=== PATIENT | female | born 1950 | race Caucasian/White ===

== ENCOUNTER 2020-06-01 13:01 | Inpatient (IN) | payer MEDICARE ==
[~2020-06-01] VITALS: Ht 157.5 cm; Wt 65.7 kg
[~2020-06-01 13:01] MED LIST: AMOXICILLIN875 MG PO; ASPIR 8181 MG PO; BENADRYL25 MG; CALCIUM 600 +1 EAC1 PO; CATAPRES0.1 MG PO; CO Q-10100 MG; HYDROCHLOROTH12.5 M2; HYDROCHLOROTH12.5 M2 PO; LIPITOR 20 MG T20 M1; LIPITOR 20 MG T20 M1 PO; LISINOPRIL20 MG PO; MOTION RELIEF25 MG PO; NORVASC2.5 MG PO; TENORMIN25 MG PO; VITAMIN D2000 UNIT PO; ZOFRAN ODT4 MG PO; ZOLOFT25 MG PO
[2020-06-01 13:02] VITALS: BP 160/69
[2020-06-01] MEDS ORDERED: CARDIZEM SR 60M60 MG PO (13:06)
[2020-06-01] MEDS ORDERED: ZESTRIL40 MG PO (13:06)
[2020-06-01] MEDS ORDERED: ZOCOR 10 MG TAB10 MG PO (13:07)
[2020-06-01 13:25] LABS: ABSOLUTE LYMPHOCYTES 1.2 thou/uL (0.8-5.3); ABSOLUTE MONOCYTES 0.3 thou/uL (0.0-1.2); ABSOLUTE NEUTROPHILS 4.2 thou/uL (1.6-8.1); BASOPHILS 0.5 %; EOSINOPHILS 0.8 %; HEMOGLOBIN 11.7 gm/dL (12.0-15.0); LYMPHOCYTES 20.5 %; MCH 29.6 pg (26.0-34.0); MCHC 34.3 g/dL (28.0-37.0); MCV 86.4 fL (80.0-100.0); MONOCYTES 5.5 %; MPV 7.4 fl. (7.2-11.1); NUCLEATED RBCS 0 /100WBC; PLATELET COUNT* 251 thou/uL (150-400); POLYS 72.7 %; RBC 3.94 mil/uL (4.20-5.00); RDW-CV 13.1 % (10.5-14.5); WBC 5.7 thou/uL (4.0-11.0)
[2020-06-01 13:34] LABS: APTT 25.8 Seconds (25.0-31.3); CALCIUM 8.6 mg/dL (8.5-10.1); CREATININE 0.9 mg/dL (0.6-1.3); POTASSIUM 3.9 mmol/L (3.5-5.1); PROTIME 10.5 Seconds (9.20-11.50)
[2020-06-01 13:50] LABS: ALBUMIN 3.7 g/dL (3.4-5.0); TOTAL BILIRUBIN 0.4 mg/dL (<0.1-1.0); TOTAL PROTEIN 7.4 g/dL (6.4-8.2)
[2020-06-01 16:48] VITALS: BP 135/63
[2020-06-01 17:08] VITALS: BP 144/61
--- NOTE | 2020-06-01 17:14 | EKG ---
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[employer]: LISA : 1950 Requested By: Ran Yusuf Order Number: [id number] MD: Kobi Moreno Measurements Intervals [place] Rate: 82 P: SC: QRS: 1 QRSD: 95 T: 70 QT: 377 QTc: 441 Interpretive Statements Normal sinus rhythm Nonspecific T abnormalities, lateral leads Compared to ECG 04/30/2017 10:23:04 Sinus rhythm no longer present T-wave abnormality still present Electronically Signed On 06-01-2020 17:14:06 CDT by Kobi Moreno [email or web address] <ELECTRONICALLY SIGNED> By: Dana Moreno MD, [facility] 06/01/20 1714 1308 1308 Dana Moreno MD, [facility] /EPI
[2020-06-01 17:17] LABS: CHOLESTEROL 251 mg/dL (<200); HDL CHOLESTEROL 36 mg/dL (>40); LDL CHOLESTEROL 192 mg/dL (<100); TRIGLYCERIDE 116 mg/dL (<150); VLDL 23 mg/dL (<40)
[2020-06-01 17:18] LABS: SERUM ASSESSMENT Clear
[2020-06-01 20:00] VITALS: BP 155/67
[2020-06-02] VITALS: BP 121/47
[2020-06-02 04:00] VITALS: BP 143/76
[2020-06-02 08:00] VITALS: BP 167/72
[2020-06-02 12:00] VITALS: BP 166/79
--- NOTE | 2020-06-02 15:27 | 2DMMODE ---
[place] [address] 2 D/M-MODE ECHOCARDIOGRAM Name: WILLIE GONCALVES Dre Room: [address] IN M.R.#: [id number] Admission: 06/01/20 Attend Phys: Clarke Reveles, Discharge: Date of : 46 Date of Service: 06/02/20 1526 Report #: [id number] THIS REPORT FOR: cc: Virginia Munson MD, Lin W. MD Holkins, John M. MD [facility] ~ APPROVED REPORT Study performed: 06/02/2020 13:07:19 EXAM: Comprehensive 2D, Doppler, and color-flow Echocardiogram Patient Location: Bedside BSA: 1.59 HR: 79 bpm BP: 143/76 mmHg Other Information Study Quality: Good Indications CVA/TIA Echo Enhancing Agent Indication: Rule out Shunt Agent(s) / Amount(s) Used: Agitated Saline cc 2D Dimensions IVSd: 10.12 (7-11mm) LVOT Diam: 22.36 (18-24mm) LVDd: 47.82 mm PWd: 10.21 (7-11mm) Ascending Ao: 28.39 (22-36mm) LVDs: 31.03 (25-40mm) Aortic Root: 27.22 mm Volumes Left Atrial Volume (Systole) LA ESV Index: 19.20 mL/m2 Aortic Valve AoV Peak Srikanth.: 1.77 m/s AO Peak Gr.: 12.53 mmHg LVOT Max P.17 mmHg AO Mean Gr.: 7.59 mmHg LVOT Mean P.18 mmHg LVOT Max V: 1.02 m/s AO V2 VTI: 36.81 cm LVOT Mean V: 0.68 m/[place] [address] 2 D/M-MODE ECHOCARDIOGRAM Name: WILLIE GONCALVES Room: [address] IN ..#: [id number] Admission: 06/01/20 Attend Phys: Clarke Reveles, Discharge: Date of : 46 Date of Service: 06/02/20 1526 Report #: [id number] INDIGO (VTI): 2.42 cm2 LVOT V1 VTI: 22.68 cm Mitral Valve E/A Ratio: 0.78 MV Decel. Time: 234.13 ms MV E Max Srikanth.: 0.78 m/s MV PHT: 67.90 ms MVA (PHT): 3.24 cm2 TDI E/Lateral E': 13.00 E/Medial E': 7.80 Medial E' Srikanht.: 0.10 m/s Lateral E' Srikanth.: 0.06 m/s Pulmonary Valve PV Peak Srikanth.: 1.22 m/s PV Peak Gr.: 5.92 mmHg Tricuspid Valve RAP Estimate: 5.00 mmHg TR Peak Gr.: 21.80 mmHg RVSP: 26.80 mmHg PA Pressure: 26.80 mmHg Left Ventricle The left ventricle is normal size. There is normal LV segmental wall motion. Mild concentric left ventricular hypertrophy. Left ventricular systolic function is normal. The left ventricular ejection fraction is within the normal range. LVEF is 60-65%. Grade I - abnormal relaxation pattern. Right Ventricle The right ventricle is normal size. The right ventricular systolic function is normal. Atria The left atrium size is normal. Injection of bubbles documented no interatrial shunt. The right atrium size is normal. Aortic Valve Mild aortic valve sclerosis. No aortic regurgitation is present. There is no aortic valvular stenosis. Mitral Valve The mitral valve is normal in structure. Trace mitral regurgitation. No evidence of mitral valve stenosis[place] [address] 2 D/M-MODE ECHOCARDIOGRAM Name: WILLIE GONCALVES Room: [address]#: [id number] Admission: 06/01/20 Attend Phys: Clarke Reveles, Discharge: Date of : 46 Date of Service: 06/02/20 1526 Report #: [id number] The tricuspid valve is normal in structure. Trace tricuspid regurgitation. Pulmonic Valve The pulmonary valve is normal in structure. There is no pulmonic valvular regurgitation. Great Vessels The aortic root is normal in size. IVC is normal in size and collapses >50% with inspiration. Pericardium There is no pericardial effusion. <Conclusion> Mild concentric left ventricular hypertrophy. Left ventricular systolic function is normal. The left ventricular ejection fraction is within the normal range. LVEF is 60-65%. Grade I - abnormal relaxation pattern. The right ventricle is normal size. The left atrium size is normal. Mild aortic valve sclerosis. No aortic regurgitation is present. There is no aortic valvular stenosis. The mitral valve is normal in structure. Trace mitral regurgitation. The tricuspid valve is normal in structure. IVC is normal in size and collapses >50% with inspiration. There is no pericardial effusion. There is normal LV segmental wall motion. Injection of bubbles documented no interatrial shunt. <ELECTRONICALLY SIGNED> By: Jamey Ahn MD, FACC 06/02/20 1526 1526 1526 Jamey Ahn MD, FACC /INF
[2020-06-02 15:54] VITALS: BP 124/63
[2020-06-02 20:00] VITALS: BP 163/74
[2020-06-03] VITALS: BP 125/61
[2020-06-03 04:00] VITALS: BP 129/60
[2020-06-03 08:00] VITALS: BP 141/68
[2020-06-03] MEDS ORDERED: ZOCOR 10 MG TAB10 MG PO (08:18)
[2020-06-03] MEDS ORDERED: PREDNISONE 10 M10 MG PO (08:18)
[2020-06-03 12:11] VITALS: BP 141/68
== END 2020-06-03 13:42 | disposition home or self-care (01) | DRG 149 ==
LOC: M.ERS 13:01 → M.TBA-ER 15:08 → M.2W 15:08
PROVIDERS: Emergency Medicine Emergency Medical Services; ADMIT Internal Medicine; ATTEND Internal Medicine
DX: H83.01 Labyrinthitis, right ear (principal); H81.4 Vertigo of central origin; I10 Essential (primary) hypertension; E78.5 Hyperlipidemia, unspecified; R73.03 Prediabetes; E78.00 Pure hypercholesterolemia, unspecified; I49.3 Ventricular premature depolarization; R01.1 Cardiac murmur, unspecified; Z20.828 Contact with and (suspected) exposure to other viral communicable diseases; Z98.41 Cataract extraction status, right eye; Z98.42 Cataract extraction status, left eye; Z88.2 Allergy status to sulfonamides; Z91.048 Other nonmedicinal substance allergy status; Z79.82 Long term (current) use of aspirin; Z79.899 Other long term (current) drug therapy